=== PATIENT | female | born 1960 | race Caucasian/White ===

== ENCOUNTER 2021-07-20 11:05 | Outpatient (CLI) | payer SELFPAY, OTHER ==
--- NOTE | 2021-07-20 11:07 | BI_ITS ---
MAMMOGRAPHY - BILATERAL SCREENING 3-D TOMOSYNTHESIS REASON FOR EXAM: Female, 61 years old. SCREENING PERTINENT HISTORY: No significant family history. TECHNIQUE: 2-D mammograms and 3-D Tomosynthesis of the breast (s) were performed. CAD was performed. COMPARISON: None. FINDINGS: The breast composition is heterogeneously dense that can obscure small breast masses. Scattered benign calcifications are seen. No dominant mass the right breast. 2 cm oval obscured equal density mass in the upper outer quadrant left breast at mid depth and focal compression views are recommended for further evaluation. No suspicious calcifications.. No architectural distortion is identified. There is no skin thickening or retraction. BI/SCRN MAMM (CAD)W/NEELIMA BILAT IMPRESSION: 2 cm oval obscured equal density mass in the upper outer quadrant left breast at mid depth and focal compression views are recommended for further evaluation. ASSESSMENT CATEGORY: BIRADS Category 0: Incomplete. Need additional imaging evaluation as above. A letter regarding these results will be sent to the patient by the facility within 30 days. FOLLOW UP RECOMMENDATION: Additional imaging recommended as above. (E) Approximately 10% of breast cancers are not detected by mammography. A normal mammogram should not delay biopsy of a clinically suspicious abnormality. Electronically Signed: Omi Griffin MD at 15:14 EDT ,
== END 2021-07-20 23:59 | disposition home or self-care (01) ==
LOC: OPBI 11:06
PROVIDERS: PCP Nurse Practitioner Family; Referring Provider Obstetrics & Gynecology; Visit Provider Obstetrics & Gynecology
DX: Z12.31 Encounter for screening mammogram for malignant neoplasm of breast (principal)
CPT/HCPCS: 77063; 77067

== ENCOUNTER → 2021-08-11 | Outpatient (CLI) | payer SELFPAY, OTHER ==
--- NOTE | 2021-08-11 09:18 | US_ITS ---
STUDY: ULTRASOUND BREAST - LEFT REASON FOR EXAM: Female, 61 years old. Abnormal screening mammogram. TECHNIQUE: Axial and longitudinal images of the LEFT breast were performed with a high resolution ultrasound transducer. # OF IMAGES: 42 COMPARISON: Comparison is made with prior mammogram dated 07/20/2021 and 08/11/2021. FINDINGS: LEFT Breast: The mammographic abnormality corresponds to a 1.4 cm x 1.1 cm x 1.2 cm complex solid and cystic nodule at the 2 o''clock position of the breast at 3 cm from the nipple. Biopsy is recommended. A dilated subareolar duct is also visualized. US/Breast Limited Unilateral IMPRESSION: The mammographic abnormality corresponds to a 1.4 cm x 1.1 cm x 1.2 cm complex solid and cystic nodule at the 2 o''clock position breast at 3 cm from nipple. Biopsy recommended. ASSESSMENT CATEGORY: BIRADS Category 4: Suspicious - Biopsy Should Be Considered. A letter regarding these results will be sent to the patient by the facility within 30 days. Electronically Signed: Roberto Villalba MD at 14:06 EDT ,
--- NOTE | 2021-08-11 09:19 | BI_ITS ---
MAMMOGRAPHY - BILATERAL DIAGNOSTIC REASON FOR EXAM: Female, 61 years old. Abnormal screening mammogram. PERTINENT HISTORY: Non-contributory. TECHNIQUE: Compression spot views of the left breast were obtained. CAD: Full Field Digital Mammography with Computer Added Detection was performed. COMPARISON: Comparison is made with prior mammogram dated 07/20/2021. FINDINGS: Breast Composition: The breasts are heterogeneously dense, which may obscure small masses. Persistent 1.5 cm nodular density in the superior retroareolar region of the left breast. Correlation with ultrasound is recommended. No other significant abnormalities are identified. BI/DIAG MAMM W/CAD, BILAT IMPRESSION: Persistent nodular density seen in the superior retroareolar region of the left breast. Correlation with ultrasound is recommended. ASSESSMENT CATEGORY: BIRADS Category 0: Incomplete. Need additional imaging evaluation. A letter regarding these results will be sent to the patient by the facility within 30 days. Approximately 10% of breast cancers are not detected by mammography. A normal mammogram should not delay biopsy of a clinically suspicious abnormality. Electronically Signed: Roberto Villalba MD at 11:40 EDT ,
== END | disposition home or self-care (01) ==
PROVIDERS: PCP Nurse Practitioner Family; Visit Provider Obstetrics & Gynecology
DX: N63.21 Unspecified lump in the left breast, upper outer quadrant (principal)
CPT/HCPCS: 76642; 77066

== ENCOUNTER → 2021-08-18 | Outpatient (CLI) | payer OTHER, SELFPAY ==
--- NOTE | 2021-08-16 14:50 | BRBX_PTH ---
PATIENT: THOMAS KENDALL [facility] U#:[id number] AGE/SX: 61/F ROOM: RE08/18/[address]: Dr. 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 Ductal dilatation. Negative for malignancy. See comment. JERMAINE:angelic 08/19/2021 COMMENT Correlation with clinical, radiologic findings and appropriate follow up are necessary. Case has been reviewed in consultation with Dr. Caraballo who concurs with the above diagnosis. IDC:AM MICROSCOPIC DESCRIPTION Slides are reviewed. GROSS DESCRIPTION Received in fixative is one container labeled with the patient's name and designated left breast. The specimen consists of multiple elongated fragments of go-yellow fibroadipose tissue mixed with blood clot that in aggregate measure 2.5 x 1.5 x 0.1 cm. The entire specimen is submitted in one cassette. / JERMAINE:angelic 08/18/2021 TC:5 CPT: [id number]
== END | disposition home or self-care (01) ==
LOC: LABSPEC 09:58
PROVIDERS: PCP Nurse Practitioner Family; Referring Provider Surgery; Visit Provider Surgery
DX: N60.92 Unspecified benign mammary dysplasia of left breast (principal)
CPT/HCPCS: 88305

== ENCOUNTER → 2022-02-10 | Outpatient (CLI) | payer SELFPAY, OTHER ==
--- NOTE | 2022-02-10 09:21 | US_ITS ---
STUDY: ULTRASOUND BREAST - LEFT REASON FOR EXAM: Female, 61 years old. Six-month follow-up of a left breast cyst. TECHNIQUE: Axial and longitudinal images of the LEFT breast were performed with a high resolution ultrasound transducer. # OF IMAGES: 3 COMPARISON: Comparison is made with prior study 08/11/2021. FINDINGS: LEFT Breast: There is a 5 mm x 8 mm x 5 mm cyst at the 3 o''clock position of the breast breast 2 cm from the nipple US/Breast Limited Unilateral IMPRESSION: 5 mm x 8 mm x 5 mm cyst at the 2 o''clock position of the breast at 2 cm from the nipple. ASSESSMENT CATEGORY: BIRADS Category 2: Benign. A letter regarding these results will be sent to the patient by the facility within 30 days. Electronically Signed: Roberto Villalba MD at 12:24 EDT ,
== END | disposition home or self-care (01) ==
PROVIDERS: PCP Nurse Practitioner Family; Referring Provider Surgery; Visit Provider Surgery
DX: N63.20 Unspecified lump in the left breast, unspecified quadrant (principal)
CPT/HCPCS: 76642

== ENCOUNTER → 2023-02-28 | Outpatient (CLI) | payer SELFPAY, OTHER ==
--- NOTE | 2023-02-28 12:54 | BI_ITS ---
MAMMOGRAPHY - BILATERAL SCREENING REASON FOR EXAM: Female, 62 years old. Routine annual screening examination. PERTINENT HISTORY: Non-contributory. History of prior left breast biopsy. TECHNIQUE: Digital bilateral breast neelima (3D mammographic acquisition) in the CC and MLO projections. 2-D mediolateral oblique (MLO) and craniocaudad (CC) views of both breasts were obtained. CAD: Full Field Digital Mammography with Computer Added Detection was performed. COMPARISON: Comparison is made with prior study dated August 11, 2021 and July 20, 2021. FINDINGS: Breast Composition: There are scattered areas of fibroglandular density. There are no dominant masses or suspicious calcifications. A tissue clip marker is seen in the retroareolar region of the left breast. No other significant abnormalities are identified. There has been no significant change since the prior study. BI/SCRN MAMM (CAD)W/NEELIMA BILAT IMPRESSION: Stable bilateral screening mammogram. Yearly follow-up mammogram recommended. (A) ASSESSMENT CATEGORY: BIRADS Category 2: Benign. A letter regarding these results will be sent to the patient by the facility within 30 days. Approximately 10% of breast cancers are not detected by mammography. A normal mammogram should not delay biopsy of a clinically suspicious abnormality. [id number] Electronically Signed: Roberto Villalba MD at 13:40 EST ,
== END | disposition home or self-care (01) ==
LOC: OPBI 12:53
PROVIDERS: PCP Nurse Practitioner Family; Referring Provider Nurse Practitioner Family; Visit Provider Nurse Practitioner Family
DX: Z12.31 Encounter for screening mammogram for malignant neoplasm of breast (principal)
CPT/HCPCS: 77063; 77067

== ENCOUNTER → 2024-03-06 | Outpatient (CLI) | payer SELFPAY, OTHER ==
--- NOTE | 2024-03-06 09:36 | BI_ITS ---
MAMMOGRAPHY - BILATERAL SCREENING REASON FOR EXAM: Female, 63 years old. Routine annual screening examination. PERTINENT HISTORY: Non-contributory. Remote left excisional breast biopsy. TECHNIQUE: Digital bilateral breast neelima (3D mammographic acquisition) in the CC and MLO projections. 2-D mediolateral oblique (MLO) and craniocaudad (CC) views of both breasts were obtained. CAD: Full Field Digital Mammography with Computer Added Detection was performed. COMPARISON: Comparison is made with prior study dated February 28, 2023 and August 11, 2021. FINDINGS: Breast Composition: There are scattered areas of fibroglandular density. There are no dominant masses or suspicious calcifications. A tissue clip marker is once again seen in the slightly superior lateral anterior aspect of the left breast. Stable small bilateral axillary lymph nodes. No other significant abnormalities are identified. There has been no significant change since the prior study. BI/SCRN MAMM (CAD)W/NEELIMA BILAT IMPRESSION: Stable bilateral screening mammogram. Yearly follow-up mammogram recommended. (A) ASSESSMENT CATEGORY: BIRADS Category 2: Benign. A letter regarding these results will be sent to the patient by the facility within 30 days. Approximately 10% of breast cancers are not detected by mammography. A normal mammogram should not delay biopsy of a clinically suspicious abnormality. [id number] Electronically Signed: Roberto Villalba MD at 11:36 EST ,
== END | disposition home or self-care (01) ==
LOC: OPBI 09:36
PROVIDERS: PCP Nurse Practitioner Family; Referring Provider Obstetrics & Gynecology; Visit Provider Obstetrics & Gynecology
DX: Z12.31 Encounter for screening mammogram for malignant neoplasm of breast (principal)
CPT/HCPCS: 77063; 77067

== ENCOUNTER → 2025-03-31 | Outpatient (CLI) | payer SELFPAY, OTHER ==
--- NOTE | 2025-03-31 12:07 | BI_ITS ---
EXAM: SCRN MAMM (CAD)W/NEELIMA BILAT DATE: 03/31/2025 CLINICAL HISTORY: F, Age 64 y/o , SCREENING TECHNIQUE: Procedure Code: [id number] Modality: MG Procedure: SCRN MAMM (CAD)W/NEELIMA BILAT COMPARISON: Prior exam(s) were compared FINDINGS: TISSUE DENSITY: There are scattered areas of fibroglandular density. Bilateral Breast Mammographic Findings: No significant masses, calcifications or other abnormalities are identified. BI/SCRN MAMM (CAD)W/NEELIMA BILAT IMPRESSION: No mammographic evidence of malignancy. OVERALL FINAL ASSESSMENT BI-RADS 1: NEGATIVE. RECOMMENDATION: Routine annual follow-up in 1 Year Additional Recommendation none A letter with findings and recommendations will be mailed to the patient. Reading Location: [id number]
--- OUTSIDE RECORDS SUMMARY | 2025-03-31 18:40 | XMS RPT_ITS | CCD ---
Author Organization [facility] Care Team Providers Care Tree Pruner Name Role Phone INEZ Das Primary Care Provider INEZ Das Referring Provider Dr. Shelley Ford Attending Provider Dr. Hannah Oleary Attending Provider [phone] Júnior Hastings NP Primary Care Shelley Martinez Referring Shelley Martinez Attending DANIEL Calhoun Consulting Unavailable JÚNIOR HASTINGS Attending Unavailable JÚNIOR HASTINGS Primary Care Unavailable JÚNIOR HASTINGS Admitting Unavailable PROVIDER, UNKNOWN Consulting Unavailable Medications Current Medications Medication Drug Class(es) Dates Sig (Normalized) Sig (Original) ARIPiprazole 10 mg oral tablet (3 sources) Atypical Antipsychotic Start: 08-17-2021 take 1 tablet by mouth once daily Aripiprazole (Abilify) 10 mg tablet Active 10 MG PO DAILY August 17, 2021 2:28pm citalopram 10 mg oral tablet (3 sources) Serotonin Reuptake Inhibitor Start: 08-17-2021 Citalopram Active EACH PO August 17, 2021 2:28pm Problems Problem Classification Problem Date Documented Da te Episodic/Chronic Anxiety disorders (3 sources) Anxiety; Translations: [Anxiety disorder, unspecified] Chronic Genitourinary symptoms and ill-defined conditions (3 sources) Incontinence without sensory awareness; Translations: [Incontinence without sensory awareness] Onset: 05-29-2024 Chronic Nonmalignant breast conditions (5 sources) Breast lump; Translations: [Unspecified lump in the left breast, unspecified quadrant] Episodic Other screening for suspected conditions (not mental disorders or infectious disease) (8 sources) Patient encounter status; Translations: [Encounter for other screening for malignant neoplasm of breast] Onset: 04-04-2024 Episodic Results Test Name Value Interpretation Reference Range Facil ity SCRN MAMM (CAD)W/NEELIMA BILATo n 03-06-2024 SCRN MAMM (CAD)W/NEELIMA BILAT [facility] [address] [place] [address] SCRN MAMM (CAD)W/NEELIMA BILAT MR#: [id number] Acct: [id number] Name: THOMAS KENDALL Rep #: [id number] : 1960 F 63 From: Roberto michael MD PCP: Júnior Hastings, PATIENT RELATIONS LIAISON-C Status: REG [facility] Study: SCRN MAMM (CAD)W/NEELIMA BILAT Date of Exam: 02/16 Exam# [id number] Ordering Dr: Shelley Ford DO [id number] MAMMOGRAPHY - BILATERAL SCREENING REASON FOR EXAM: Female, 63 years old. Routine annual screening examination. PERTINENT HISTORY: Non-contributory. Remote left excisional breast biopsy. TECHNIQUE: Digital bilateral breast neelima (3D mammographic acquisition) in the CC and MLO projections. 2-D mediolateral oblique (MLO) and craniocaudad (CC) views of both breasts were obtained. CAD: Full Field Digital Mammography with Computer Added Detection was performed. COMPARISON: Comparison is made with prior study dated February 28, 2023 and August 11, 2021. FINDINGS: Breast Composition: There are scattered areas of fibroglandular density. There are no dominant masses or suspicious calcifications. A tissue clip marker is once again seen in the slightly superior lateral anterior aspect of the left breast. Stable small bilateral axillary lymph nodes. No other significant abnormalities are identified. There has been no significant change since the prior study. BI/SCRN MAMM (CAD)W/NEELIMA BILAT IMPRESSION: Stable bilateral screening mammogram. Yearly follow-up mammogram recommended. (A) ASSESSMENT CATEGORY: BIRADS Category 2: Benign. A letter regarding these results will be sent to the patient by the facility within 30 days. Approximately 10% of breast cancers are not detected by mammography. A normal mammogram should not delay biopsy of a clinically suspicious abnormality. [id number] Electronically Signed: Roberto Villalba MD at 11:36 EST , CC: INEZ Hastings; Dr. Shelley Ford DO [place]: Signed Normal [facility] Vital Signs Date Time Vital Sign Value Performing Clinician Faci lity 08-17-2021 14:33-0400 Body height 157.48 cm PATIENT RELATIONS LIAISON-C [employer] Work Phone: [facility] Work Phone: 08-17-2021 14:33-0400 Body mass index (BMI) [Ratio] 43.9 kg/m2 PATIENT RELATIONS LIAISON-C [employer] Work Phone: [facility] Work Phone: 08-17-2021 14:33-0400 Body weight 108.86 kg PATIENT RELATIONS LIAISON-C [employer] Work Phone: [facility] Work Phone: 08-17-2021 14:33-0400 Diastolic blood pressure 82 mm[Hg] PATIENT RELATIONS LIAISON-C [employer] Work Phone: [facility] Work Phone: 08-17-2021 14:33-0400 Respiratory rate 18 /min PATIENT RELATIONS LIAISON-C [employer] Work Phone: [facility] Work Phone: 08-17-2021 14:33-0400 Systolic blood pressure 156 mm[Hg] PATIENT RELATIONS LIAISON-C Naty Das Work Phone: [facility] Work Phone: Encounters Encounter Date Encounter Type Care Provider Facility Start: 05-29-2024 End: 10-16-2024 [facility] Start: 03-06-2024 End: 03-06-2024 ambulatory Júnior Xavier Venkata PATIENT RELATIONS LIAISON Facility:[facility] Start: 02-10-2022 End: 02-10-2022 ambulatory [facility] Work Phone: Start: 02-10-2022 End: 02-10-2022 Patient encounter procedure [facility] Start: 08-18-2021 End: 08-18-2021 Patient encounter procedure PATIENT RELATIONS LIAISON-C Naty Das Work Phone: [facility]-Laboratory, Specimen Start: 08-17-2021 End: 08-17-2021 Patient encounter procedure PATIENT RELATIONS LIAISON-C Naty Das Work Phone: [facility] Start: 08-11-2021 End: 08-11-2021 Patient encounter procedure PATIENT RELATIONS LIAISON-C Naty Das Work Phone: [facility]-Outpatient Breast Imaging Start: 07-20-2021 End: 07-20-2021 Patient encounter procedure PATIENT RELATIONS LIAISON-C Naty Das Work Phone: [facility] Start: 07-20-2021 End: 07-20-2021 Patient encounter procedure PATIENT RELATIONS LIAISON-C Naty Das Work Phone: [facility] Procedures Date Procedure Procedure Detail Performing Clinician Start: 02-10-2022 Ultrasonography of breast Start: 08-11-2021 Bilateral mammography PATIENT RELATIONS LIAISON-C Naty Das Work Phone: Start: 08-11-2021 Ultrasonography of breast PATIENT RELATIONS LIAISON-Patti chandler Work Phone: Start: 07-20-2021 Screening mammography INEZ Das Work Phone: H/O: surgery S/P exploratory laparotomy PATIENT RELATIONS LIAISONPierre Das Work Phone: Plan of Treatment Date Care Activity Detail Author Start: 07-20-2021 Screening mammography SCRN TIGIST M (CAD)W/NEELIMA BILAT [facility] Work Phone: Payers Date Payer Category Payer Self-pay [id number] 2024 Unknown [id number] 2024 Unknown [id number] 1960 Unknown [id number] . [id number] Unknown [id number] Unknown [id number] Social History Date Type Detail Facility Start: 07-20-2021 End: 08-17-2021 Tobacco smoking status NHIS Unknown if ever smoked [facility] Work Phone: Start: 1960 Sex Assigned At Female [facility] Work Phone: Evaluation note Note Date & Type Note Facility Evaluation note Diagnosis Onset Date Screening breast examination acute [facility] Work Phone: Evaluation note Note Date & Type Note Facility Evaluation note Diagnosis Onset Date Screening breast examination acute Breast mass, left acute [facility] Work Phone: Evaluation note Note Date & Type Note Facility Evaluation note No assessment information availa [facility] Work Phone: Chief Complaint and Reason for Visit Chief Complaint MAMM EVENT SCREENING Reason for Visit Screening breast exa mination Chief Complaint MAMM EVENT SCREENING ABNORMAL MAMMOGRAM BIRADS 4 LEFT BREAST Reason for Visit Screening breast exa mination Breast mass, left Chief Complaint MAMM EVENT SCREENING ABNORMAL MAMMOGRAM BIRADS 4 LEFT BREAST LEFT BREAST BIOPSY Reason for Visit Screening breast exa mination Breast mass, left Chief Complaint LEFT BREAST MASS FOL LOW UP Summary Purpose Family History No Family History Records Found Advance Directives No Advanced Directives Records FoundNo Advanced Directives Records Found Additional Source Comments Goals (unrecognized section and content) Goals may be documented in a n alternate sectionGoals may be documented in an alternate sectionGoals may be documented in an alternate sectionGoals may be documented in an alternate section INFORMATION SOURCE (unrecogn ized section and content) DATE CREATED AUTHOR 04/08/2024 [facility] DATE CREATED AUTHOR AUTHOR'S ORGANIZ ATION 10/18/2024 [facility] FOR RECORDS PERTAINING TO PATIENTS WHO ARE OR HAVE BEEN ENROLLED IN A CHEMICAL DEPENDENCY/SUBSTANCEABUSE PROGRAM, SOME INFORMATION MAY BE OMITTED. This clinical summary was aggregated from multiple sources. Caution should be exercised in using it in the provision of clinical care. This summary normalizes information from multiple sources, and as a consequence, information in this document may materially change the coding, format and clinical context of patient data. In addition, data may be omitted in some cases. CLINICAL DECISIONS SHOULD BE BASED ON THE PRIMARY CLINICAL RECORDS. [employer] [facility]. provides no warranty or guarantee of the accuracy or completeness of information in this document.
== END | disposition home or self-care (01) ==
LOC: OPBI 12:06
PROVIDERS: PCP Nurse Practitioner Family; Referring Provider Nurse Practitioner Family; Visit Provider Nurse Practitioner Family
DX: Z12.31 Encounter for screening mammogram for malignant neoplasm of breast (principal)
CPT/HCPCS: 77063; 77067